=== PATIENT | female | born 1980 | race African-American/Black ===

== ENCOUNTER 2016-08-24 13:05 | Emergency (ER) | payer OTHER ==
[~2016-08-24] VITALS: Ht 172.7 cm; Wt 95.5 kg
[2016-08-24 13:06] VITALS: BP 135/82
[2016-08-24] MEDS ORDERED: SERT50TA12 PO (13:07)
== END 2016-08-24 16:03 | disposition home or self-care (01) ==
LOC: EMS 13:10
DX: F41.9 Anxiety disorder, unspecified (principal); F32.9 Major depressive disorder, single episode, unspecified
CPT/HCPCS: 99284